=== PATIENT | female | born 1950 | race Caucasian/White ===

== ENCOUNTER 2023-07-22 11:10 | Emergency (ER) | payer OTHER, SELFPAY ==
[2023-07-22] VITALS (17 sets, daily range): BP systolic 130–175; BP diastolic 82–105; PULSE 79–110; RESP 14–28; TEMP 36.5; O2SAT 92–99; BMI 35.4
--- NOTE | 2023-07-22 11:27 | DI.RAD.S_ITS ---
PROCEDURE: XR CHEST 1V INDICATIONS: chest pain TECHNIQUE: One view of the chest was acquired. COMPARISON: None. FINDINGS: Surgical changes and devices: None. Lungs and pleura: Lungs are clear. No pleural effusions or pneumothorax. Mediastinum: Mediastinal contours appear normal. Heart size is normal. Bones and chest wall: No suspicious bony lesions. Overlying soft tissues appear unremarkable. IMPRESSION: No acute pulmonary process. Dictated by: Genny Lyons M.D. on 07/22/2023 at 12:54 Approved by: Genny Lyons M.D. on 07/22/2023 at 12:54
--- NOTE | 2023-07-22 11:28 | DI.US.S_ITS ---
PROCEDURE: US ABDOMEN LIMITED INDICATIONS: ABDOMEN/CHEST PAIN TECHNIQUE: Real-time focused scanning was performed of the abdomen, with image documentation. COMPARISON: None. FINDINGS: Focus of decreased echogenicity a septation is present in the left lobe measuring 8 mm. No gallbladder stones. Wall thickness measures 2.2 mm. Common bile duct is not well seen measuring approximately 6.5 mm. IMPRESSION: Septated hepatic cyst is incidentally noted. Gallbladder is unremarkable. Dictated by: Genny Lyons M.D. on 07/22/2023 at 12:55 Approved by: Genny Lyons M.D. on 07/22/2023 at 12:55
[2023-07-22] MEDS: ASPIRIN 81 MG CHEW TAB 324 MG PO (11:32)
[2023-07-22] MEDS: ONDANSETRON 4 MG/2 ML INJ IV (11:33)
[2023-07-22 11:54] LABS: Prothrombin Time 11.5 SECONDS (10.1-12.7)
[2023-07-22 11:56] LABS: PTT Partial Thromboplastin Tim 29 SECONDS (26-36)
[2023-07-22 11:57] LABS: Add Manual Diff / Slide Review NO; Basophils Absolute Auto 0 /uL (0-100); Basophils Percent Auto 0.8 % (0-2); Eosinophils Absolute Auto 0 /uL (0-450); Eosinophils Percent Auto 0.7 % (2-4); Hematocrit 40.1 % (36-46); Hemoglobin 13.7 g/dL (12.0-16.0); Lymphocytes Absolute Auto 1600 /uL (1100-4500); Lymphocytes Percent Auto 25.8 % (25-40); Mean Corpuscular HGB Conc 34.2 % (30-36); Mean Corpuscular Hemoglobin 31.7 PG (26-34); Mean Corpuscular Volume 92.5 fL (80-100); Monocytes Absolute Auto 500 /uL (0-900); Monocytes Percent Auto 7.4 % (3-14); Neutrophils Absolute Auto 4100 /uL (1500-7000); Neutrophils Percent Auto 65.3 % (50-75); Platelet Count 335 X10^3/uL (150-400); Red Blood Cell Count 4.33 X10^6/uL (4.0-5.2); Red Cell Distribution Width 13.3 % (11.6-14.8); White Blood Cell Count 6.3 X10^3/uL (4.5-11.0)
[2023-07-22 11:58] LABS: Alanine Aminotransferase 24 IU/L (<35); Albumin 4.7 g/dL (3.5-5.0); Albumin Globulin Ratio 1.2 (1.0-2.8); Alkaline Phosphatase 126 U/L (38-126); Aspartate Aminotransferase 29 IU/L (14-36); BUN Creatinine Ratio 26.7 (6-22); Bilirubin Total 0.7 mg/dL (0.2-1.3); Blood Urea Nitrogen 20 mg/dL (7-17); Calcium 10.4 mg/dL (8.4-10.2); Carbon Dioxide 30 mmol/L (22-32); Chloride 98 mmol/L (98-107); Creatine Kinase 51 U/L (30-135); Estimated Glomerular Filt Rate > 60 mL/min (>60); Globulin 3.8 g/dL (1.7-4.1); Glucose 114 mg/dL (80-110); HEMOLYSIS < 15 (0-50); Lipase 134 U/L (23-300); Potassium 4.2 mmol/L (3.4-5.1); Sodium 135 mmol/L (137-145); Total Protein 8.5 g/dL (6.3-8.2)
[2023-07-22 12:09] LABS: Troponin I < 0.012 ng/mL (0.01-0.034)
--- NOTE | 2023-07-22 12:16 | PC.NURSE ---
Pt states that she has been having episodes of epigastric pain that stated in her RUQ that now radiates to the her mid upper quadrant and mid back. Pt describes the pain as a 10\10 when it occurs and also experiences associated diaphoresis and nausea. Pt recalls having approximately 5-6 similar episodes since the summer and states that they occur at random times. This morning she awoke at 0500 and stated that the pain was so bad that she could barely get out of bed to use the the restroom and that this episode lasted 10-15 minutes. Pt denies any fevers and reports never having any similar abd issues. 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
--- NOTE | 2023-07-22 12:58 | ED_ITS ---
HPI - Chest Pain General Chief Complaint: Chest Pain Stated Complaint: chest pain Time Seen by Provider: 07/22/23 12:17 Source: patient Mode of arrival: Family Vehicle History of Present Illness HPI narrative: Patient is a 72-year-old female without significant past medical history presenting today with right-sided chest pain. She reports that for the last 3 days once a day she has had right-sided chest pain it is underneath her breast causes her to be very nauseous weak she can not find a comfortable position it lasts for about 10 minutes and then goes away. She is not vomiting. She has not taken anything for pain. She presents today with acute pain in his very weak unable to move or walk very well. She has no history of traveling or or blood clots. She is no known coronary artery disease. She sometimes feels like she is epigastric pain as well. She denies any history of GERD. She is not short of breath denies any fever Related Data Previous Rx's Medication Instructions Recorded omeprazole 20 mg capsule,delayed 20 mg PO DAILY #30 caps 07/22/23 release ondansetron 4 mg disintegrating 4 mg PO Q8H PRN nausea and 07/22/23 tablet vomiting #10 tabs Allergies Allergy/AdvReac Type Severity Reaction Status Date / Time No Known Drug Allergies Allergy Verified 07/22/23 11:27 Review of Systems Review of Systems ROS Unobtainable: All systems reviewed & are unremarkable except as noted in HPI and below Patient History Social History Smoking Status: Never smoker Smoking Status: Never smoker alcohol intake frequency: a few times a month Substance Use Type: does not use Exam Initial Vital Signs Initial Vital Signs: Vital Signs Temperature 97.7 F 07/22/23 11:24 Pulse Rate 110 H 07/22/23 11:24 Respiratory Rate 22 07/22/23 11:24 Blood Pressure 175/105 H 07/22/23 11:24 Pulse Oximetry 98 07/22/23 11:24 Oxygen Delivery Method Room Air 07/22/23 11:24 GENERAL: Alert 72-year-old female appears and a while and weak clutching chest HEENT: Head atraumatic,EOMI, pupils reactive, face symmetric, moist mucous membranes CARDIOVASCULAR: Regular rate and rhythm without murmurs, rubs or gallops. RESPIRATORY: Breath sounds equal bilaterally, no wheezes rales or rhonchi. ABDOMEN: Soft, nontender. Normoactive bowel sounds all 4 quadrants. No guarding or rebound. Epigastric pain slight right upper quadrant pain guarding or rebound EXTREMITIES: Normal range of motion, no clubbing or edema. Neurovascularly intact NEUROLOGICAL: Alert and oriented x4.Normal gait and speech. SKIN: Warm, dry, no laceration, no petechiae, no rashes or lesions. Course Orders Ordered: ED Orders 07/22/23 11:27 XR chest 1V Stat EKG-12 Lead Stat 07/22/23 11:28 US abdomen limited Stat 07/22/23 11:43 Complete Blood Count AUTO DIFF Stat Comprehensive Metabolic Panel Stat D Dimer Stat Lipase Stat Magnesium Stat PTT Partial Thromboplastin Ad Stat Prothrombin Time INR Stat Troponin & CK Cardiac Panel Stat 07/22/23 13:48 CT angio chest PE protocol Stat 07/22/23 13:50 Trop I [Troponin I] Stat Discontinued Medications Aspirin (Aspirin 81 Mg Chew Tab) 324 mg PO NOW ONE Stop: 07/22/23 11:28 Last Admin: 07/22/23 11:32 Dose: 324 mg Documented By: SANDRA Ondansetron HCl (Ondansetron 4 Mg/2 Ml Inj) 4 mg IV NOW ONE Stop: 07/22/23 11:30 Last Admin: 07/22/23 11:33 Dose: 4 mg Documented By: SANDRA Vital Signs Vital signs: Vital Signs - 8 hr 07/22/23 11:24 07/22/23 12:05 07/22/23 12:08 Temperature 97.7 F Pulse Rate 110 H 109 H 101 H Respiratory Rate 22 22 Blood Pressure 175/105 H Pulse Oximetry 98 92 97 Oxygen Delivery Method Room Air 07/22/23 12:08 07/22/23 12:15 07/22/23 12:30 Temperature Pulse Rate 95 H Respiratory Rate 20 Blood Pressure 141/104 H 140/88 Pulse Oximetry 95 Oxygen Delivery Method 07/22/23 12:30 07/22/23 12:45 07/22/23 13:00 Temperature Pulse Rate 92 H 92 H 92 H Respiratory Rate 24 27 H 28 H Blood Pressure Pulse Oximetry 95 96 96 Oxygen Delivery Method 07/22/23 13:00 07/22/23 13:15 07/22/23 13:37 Temperature Pulse Rate 85 101 H Respiratory Rate 25 H 18 Blood Pressure 137/83 Pulse Oximetry 96 96 Oxygen Delivery Method 07/22/23 13:37 07/22/23 13:45 07/22/23 14:04 Temperature Pulse Rate 89 81 Respiratory Rate 25 H 14 Blood Pressure 135/82 Pulse Oximetry 97 98 Oxygen Delivery Method 07/22/23 14:05 07/22/23 14:05 07/22/23 14:15 Temperature Pulse Rate 80 82 Respiratory Rate 15 18 Blood Pressure 150/86 H Pulse Oximetry 99 97 Oxygen Delivery Method 07/22/23 14:30 07/22/23 14:30 07/22/23 14:45 Temperature Pulse Rate 81 84 Respiratory Rate 19 23 Blood Pressure 143/84 H Pulse Oximetry 98 96 Oxygen Delivery Method 07/22/23 15:00 07/22/23 15:00 07/22/23 15:28 Temperature Pulse Rate 84 79 Respiratory Rate 19 20 Blood Pressure 146/86 H 130/84 Pulse Oximetry 96 96 Oxygen Delivery Method Room Air MDM - Chest Pain Lab Data 07/22/23 11:43 07/22/23 11:43 Labs: Lab Results 07/22/23 07/22/23 Range/Units 11:43 13:50 WBC 6.3 (4.5-11.0) X10^3/uL RBC 4.33 (4.0-5.2) X10^6/uL Hgb 13.7 (12.0-16.0) g/dL Hct 40.1 (36-46) % MCV 92.5 (80-100) fL MCH 31.7 (26-34) PG MCHC 34.2 (30-36) % RDW 13.3 (11.6-14.8) % Plt Count 335 (150-400) X10^3/uL Neut % (Auto) 65.3 (50-75) % Lymph % (Auto) 25.8 (25-40) % Wirt % (Auto) 7.4 (3-14) % Eos % (Auto) 0.7 L (2-4) % Baso % (Auto) 0.8 (0-2) % Neut # (Auto) 4100 (1928-0942) /uL Lymph # (Auto) 1600 (3529-8375) /uL Wirt # (Auto) 500 (0-900) /uL Eos # (Auto) 0 (0-450) /uL Baso # (Auto) 0 (0-100) /uL PT 11.5 (10.1-12.7) SECONDS INR 1.0 (0.9-1.3) APTT 29 (26-36) SECONDS D-Dimer 833 H (<500) ng/ml Sodium 135 L (137-145) mmol/L Potassium 4.2 (3.4-5.1) mmol/L Chloride 98 (98-107) mmol/L Carbon Dioxide 30 (22-32) mmol/L BUN 20 H (7-17) mg/dL Creatinine 0.75 (0.52-1.04) mg/dL Estimated GFR > 60 (>60) mL/min BUN/Creatinine Ratio 26.7 H (6-22) Glucose 114 H (80-110) mg/dL Calcium 10.4 H (8.4-10.2) mg/dL Magnesium 2.0 (1.6-2.3) mg/dL Total Bilirubin 0.7 (0.2-1.3) mg/dL AST 29 (14-36) IU/L ALT 24 (<35) IU/L Alkaline Phosphatase 126 (38-126) U/L Total Creatine Kinase 51 (30-135) U/L Troponin I < 0.012 < 0.012 (0.01-0.034) ng/mL Total Protein 8.5 H (6.3-8.2) g/dL Albumin 4.7 (3.5-5.0) g/dL Globulin 3.8 (1.7-4.1) g/dL Albumin/Globulin Ratio 1.2 (1.0-2.8) Lipase 134 (23-300) U/L Imaging Data CT scan - chest: Radiologist's Impression: PROCEDURE: CT ANGIO CHEST PE PROTOCOL INDICATIONS: right side chest pain low o2 TECHNIQUE: After the administration of intravenous contrast, 2 mm thick sections acquired from the pulmonary apices to the posterior costophrenic angles. 3-dimensional maximum intensity projection (MIP) coronal and sagittal reformats were then acquired through the thorax. For radiation dose reduction, the following was used: automated exposure control, adjustment of mA and/or kV according to patient size. COMPARISON: [facility], CR, XR CHEST 1V, 07/22/2023, 11:56. FINDINGS: Image quality: Excellent. Pulmonary arteries: Pulmonary arteries are normal in size, and demonstrate no intraluminal filling defects to suggest central pulmonary embolism. Lungs and pleura: Lungs are clear. No pleural effusions or pneumothorax. Central and peripheral airways are patent. Mediastinum: Heart size is mildly enlarged, without pericardial effusion. No mediastinal or hilar adenopathy. Thoracic aorta is normal in caliber and enhancement. Esophagus is normal in caliber, without hiatal hernia. Bones and chest wall: No suspicious bony lesions. Ribs and thoracic spine appear intact throughout. Thyroid gland demonstrates low-attenuation focus in the left lobe.. No axillary or supraclavicular adenopathy. Abdomen: Scattered subcentimeter low-attenuation foci within the liver. They are too small to definitively characterize, although the larger foci have Hounsfield units suggestive of simple cyst. Simple left renal cyst. Otherwise, visualized upper abdominal solid organs appear normal in the early arterial phase of enhancement. IMPRESSION: No pulmonary embolism. Lungs are clear. Dictated by: Genny Lyons M.D. on 07/22/2023 at 14:43 US - abdomen: Radiologist's Impression: PROCEDURE: US ABDOMEN LIMITED INDICATIONS: ABDOMEN/CHEST PAIN TECHNIQUE: Real-time focused scanning was performed of the abdomen, with image documentation. COMPARISON: None. FINDINGS: Focus of decreased echogenicity a septation is present in the left lobe measuring 8 mm. No gallbladder stones. Wall thickness measures 2.2 mm. Common bile duct is not well seen measuring approximately 6.5 mm. IMPRESSION: Septated hepatic cyst is incidentally noted. Gallbladder is unremarkable. Dictated by: Genny Lyons M.D. on 07/22/2023 at 12:55 Chest x-ray: Radiologist's Impression: PROCEDURE: XR CHEST 1V INDICATIONS: chest pain TECHNIQUE: One view of the chest was acquired. COMPARISON: None. FINDINGS: Surgical changes and devices: None. Lungs and pleura: Lungs are clear. No pleural effusions or pneumothorax. Mediastinum: Mediastinal contours appear normal. Heart size is normal. Bones and chest wall: No suspicious bony lesions. Overlying soft tissues appear unremarkable. IMPRESSION: No acute pulmonary process. Dictated by: Genny Lyons M.D. on 07/22/2023 at 12:54 ECG Data Interpretation: Sinus rhythm rate 105 SD interval 174 QRS [address] depression in lead 3 and V3 no elevations MDM Narrative Medical decision making narrative: Patient is 72-year-old female with right-sided chest pain epigastric pain initially. Very weak she got Zofran which did seem to help. She is re-examined appears much more comfortable. Has mild epigastric pain but definitely not as bad as it was no right upper quadrant pain. She is overall feeling better. Confused about why she has had these episodes last. Labs reviewed no leukocytosis or anemia no electrolyte abnormality no WAYNE negative troponin x2. D-dimer mildly elevated at 883 Pain is not really consistent pulmonary embolism coming and going however oxygen is 92-95%. She is tachycardic. CT angio was done does not show any evidence of pulmonary embolism. At this time unclear exactly what is causing her pain but not consistent with acute coronary syndrome no evidence of cholecystitis or cholelithiasis no pulmonary embolism She is not required anything for pain at this time possibly a costochondritis or GERD. She does complain of some burning in her chest and epigastric area. Discharge Plan Departure Patient Disposition: Home Clinical Impression: Atypical chest pain Instructions: DI for Atypical Chest Pain Activity Restrictions/Additional Instructions: *You have been diagnosed with atypical chest pain *What to do: At this time you are having heart attack blood clot ultrasound for gallbladder did not show any problem. I do recommend that you have further cardiac workup with your primary care but you do not need to stay in the hospital. I would recommend heat or ice pack when this happens. *Continue to take medications as directed--> SAFEAY [place] Tylenol 650 mg every 4-6 hours if needed for [id number] pain Motrin 600 mg every 6 hours if needed for [id number] pain Zofran 4 mg every 8 hours if needed for nausea or vomiting Omeprazole 20 mg once a day if needed for acid reflux *Follow up with your primary care provider in 2-3 days or call [phone] *Return to ER if you should have increasing chest pain nausea vomiting shortness of breath or any new, worsening or concerning symptoms Prescriptions: New omeprazole 20 mg capsule,delayed release(DR/EC) 20 mg PO DAILY Qty: 30 0RF ondansetron 4 mg tablet,disintegrating 4 mg PO Q8H PRN (Reason: nausea and vomiting) Qty: 10 0RF Referrals: Haily Loera PA-C [Primary Care Provider] - Stand Alone Forms: Patient Portal/API
[2023-07-22 13:25] LABS: D Dimer 833 ng/ml (<500)
--- NOTE | 2023-07-22 13:48 | DI.CT.S_ITS ---
PROCEDURE: CT ANGIO CHEST PE PROTOCOL INDICATIONS: right side chest pain low o2 TECHNIQUE: After the administration of intravenous contrast, 2 mm thick sections acquired from the pulmonary apices to the posterior costophrenic angles. 3-dimensional maximum intensity projection (MIP) coronal and sagittal reformats were then acquired through the thorax. For radiation dose reduction, the following was used: automated exposure control, adjustment of mA and/or kV according to patient size. COMPARISON: [facility], CR, XR CHEST 1V, 07/22/2023, 11:56. FINDINGS: Image quality: Excellent. Pulmonary arteries: Pulmonary arteries are normal in size, and demonstrate no intraluminal filling defects to suggest central pulmonary embolism. Lungs and pleura: Lungs are clear. No pleural effusions or pneumothorax. Central and peripheral airways are patent. Mediastinum: Heart size is mildly enlarged, without pericardial effusion. No mediastinal or hilar adenopathy. Thoracic aorta is normal in caliber and enhancement. Esophagus is normal in caliber, without hiatal hernia. Bones and chest wall: No suspicious bony lesions. Ribs and thoracic spine appear intact throughout. Thyroid gland demonstrates low-attenuation focus in the left lobe.. No axillary or supraclavicular adenopathy. Abdomen: Scattered subcentimeter low-attenuation foci within the liver. They are too small to definitively characterize, although the larger foci have Hounsfield units suggestive of simple cyst. Simple left renal cyst. Otherwise, visualized upper abdominal solid organs appear normal in the early arterial phase of enhancement. IMPRESSION: No pulmonary embolism. Lungs are clear. Dictated by: Genny Lyons M.D. on 07/22/2023 at 14:43 Approved by: Genny Lyons M.D. on 07/22/2023 at 14:45
[2023-07-22 14:22] LABS: Troponin I < 0.012 ng/mL (0.01-0.034)
== END 2023-07-22 15:15 | disposition home or self-care (01) ==
PROVIDERS: Emergency Provider Emergency Medicine; PCP Physician Assistant Medical
DX: R07.89 Other chest pain (principal); R10.13 Epigastric pain
CPT/HCPCS: 36415; 71045; 71275; 76705; 80053; 82550; 83690; 83735; 84484; 85025; 85379; 85610; 85730; 93005; 93010; 96374; 99284; 99285; J2405; Q9967

== ENCOUNTER → 2023-08-23 07:54 | Outpatient (CLI) | payer OTHER, SELFPAY ==
--- NOTE | 2023-08-23 | DI.NM.S_ITS ---
PROCEDURE: NM HIDA WITH CCK PHARMACEUTICAL: 5.5 mCi Tc-99m mebrofenin IV; 1.8 mcg CCK IV. INDICATIONS: right upper quadrant abdominal pain TECHNIQUE: Following intravenous administration of Tc-99m mebrofenin, sequential anterior abdominal images were obtained. To evaluate the contractile response of the gallbladder in response to Cholecystokinin (CCK), sincalide (0.02 ?g/kg) was administered by slow intravenous infusion approximately 60 minutes after the administration of the radiopharmaceutical. Sequential imaging was continued for 30 minutes after the start of CCK infusion. Gallbladder ejection fraction was calculated. COMPARISON: [facility], ABDOMEN LIMITED, 07/22/2023, 11:44. FINDINGS: Biliary scan: There is normal tracer uptake and excretion by the liver. There is normal visualization of the intrahepatic ducts, common bile duct, and gallbladder. There is normal tracer transit into the duodenum. CCK stimulation: There is normal contractile response of the gallbladder to CCK infusion. The calculated gallbladder ejection fraction is 92%; normal values are above 35%. It has been shown that any patient abdominal pain after CCK administration is related to the rate of CCK injection, rather than to any underlying gallbladder disease (Clinical Nuclear Medicine 2012; 37: 63-70. Journal of Nuclear Medicine 2014; 55: 1-9). IMPRESSION: 1. Normal filling of gallbladder. No evidence for acute cholecystitis. 2. Normal contractile response of gallbladder to CCK stimulation. Dictated by: Alireza Cole M.D. on 08/23/2023 at 12:06 Approved by: Alireza Cole M.D. on 08/23/2023 at 12:07
== END ==
PROVIDERS: PCP Physician Assistant Medical; Referring Provider Physician Assistant Medical; Visit Provider Physician Assistant Medical
DX: R10.11 Right upper quadrant pain (principal)
CPT/HCPCS: 78227; A9537; J2805